=== PATIENT | female | born 1960 | race Caucasian/White ===

== ENCOUNTER → 2016-08-23 | Outpatient (CLI) | payer OTHER ==
[~2016-08-23] MED LIST: ACETAMINOPHEN PO; ADVAIR INH; ALBUTEROL17 GM INH; ASPIRIN EC81 M1 PO; ASPIRIN ENTERI325 M1 PO; ASPIRIN81 M2 PO; ATORVASTATIN CA10 MG PO; AZELASTINE137 MCG/0.; CETIRIZINE HCL10 MG PO; CIMETIDINE300 MG PO; CIPRO PO; DULERA 100 MCG/13 GM IH; FLAGYL PO; FLEXERIL10 MG PO; FLONASE 0.05% N16 G1; FLONASE16 GM; HYDROCHLOROTH12.5 MG PO; IBUPROFEN800 MG PO; LEVAQUIN PO; LIPITOR20 MG PO; LISINOPRIL PO; LISINOPRIL20 MG PO; LOPID600 MG PO; LORTAB 5/500 TA1 TA2 PO; OMEPRAZOLE40 M1 PO; PATIENT'S PHARMACY; PEPTO BISMOL PO; PHENERGAN PO; PREVACID PO; PRINIVIL5 MG PO; PROAIR HFA INH; PROTONIX PO; PYRIDIUM PO; TAGAMET300 MG PO; TERBINAFINE HC250 MG PO; TYLENOL EXT.STRENGTH PO; ZOCOR80 MG PO; ZOLOFT PO; ZOLOFT100 MG PO; ZYRTEC10 M2 PO
--- NOTE | ~2016-08-23 | NM22 ---
[facility] A Service of [facility] RADIOLOGY TEXT RESULTS PATIENT: ROEL PURCELL LOCATION: [facility] : [birth year] UNIT #: [id number] AGE: [address]: Flavio Caba MD SEX: F ORDER DR: [id number] [facility] [address] [place], [place] [address] [id number] O MR#: [id number] Acc #: [id number] NAME: ROEL PURCELL : 1960 SEX: F STUDY DATE/TIME: 08/23/2016 9:47 UNIT: [facility] ROOM: STUDY DESCRIPTION: NM Hepatobiliary W GB Pharm Attending Physician: Flavio Caba M.D. Ordering Physician: Flavio Caba M.D. Primary Care Physician: [facility] MEDICAL IMAGING REPORT This report is preliminary unless electronic signature is present EXAM HIDA scan with Kinevac CCK 08/23/2016 HISTORY Right upper quadrant abdominal pain with nausea and vomiting, gastroesophageal reflux, abdominal bloating for 3 weeks. FINDINGS The patient received an intravenous injection of 5.4 mCi of technetium 99m tagged Choletec for hepatobiliary imaging. 1 hour following the injection of the radiopharmaceutical, the patient received an intravenous injection of 2 mcg of Kinevac. There is homogeneous distribution of the radiotracer throughout the liver. Gallbladder activity was seen by 15 minutes postinjection of the radiopharmaceutical. Following Kinevac injection, the gallbladder ejection fraction was 95.8% (normal is greater than 30%). IMPRESSION Normal HIDA scan with gallbladder ejection fraction of 95.8%. Dictated by... Ezequiel Matias M.D. THIS IS AN ELECTRONICALLY VERIFIED REPORT Ezequiel Matias M.D. at 08/24/2016 2:22 PM RHETT/joni TD: 08/23/2016 13:31 JOB #: [id number] MEDICAL IMAGING REPORT COPY
== END | disposition home or self-care (01) ==
LOC: CNUC 07:27
DX: R10.9 Unspecified abdominal pain (principal); R11.2 Nausea with vomiting, unspecified
CPT/HCPCS: 78227; A9537; J2805

== ENCOUNTER 2016-12-02 10:58 | Emergency (ER) | payer OTHER ==
[2016-12-02 11:51] LABS: URINE SOURCE CLEAN CATCH
[2016-12-02 11:59] LABS: URINE APPEARANCE CLOUDY; URINE BILIRUBIN NEG (NEG); URINE BLOOD 2+ (NEG); URINE COLOR YELLOW; URINE GLUCOSE NEG (NEG); URINE KETONE NEG (NEG); URINE LEUKOCYTE ESTERASE 2+ (NEG); URINE NITRATE NEG (NEG); URINE PROTEIN NEG (NEG); URINE SPECIFIC GRAVITY 1.028 (1.003-1.035); URINE UROBILINOGEN 0.2 MG/DL (NEG)
[2016-12-02 12:01] LABS: CULTURE INDICATED? YES; URINE BACTERIA AUWI 1+ (NEGATIVE); URINE SQUAMOUS EPITHELIAL CELL MOD /[HPF]; UWBCS1 AUWI 25-50 (0-5)
[2016-12-02 12:13] LABS: BASOPHIL% 0.4 % (0-2.5); EOSINOPHIL# 0.2 X10e3 (0-0.7); EOSINOPHIL% 2.7 % (0.0-7.0); HEMATOCRIT 36.1 % (35.0-45.0); HEMOGLOBIN 11.9 gm/dL (12.0-16.0); LYMPHOCYTE# 2.8 X10e3 (1.0-3.5); LYMPHOCYTE% 37.1 % (17.0-45.0); MEAN CELL VOLUME 83.9 FL (83-96); MEAN CORPUSCULAR HEMOGLOBIN 27.6 PG (28-34); MEAN CORPUSCULAR HGB CONC 32.9 g/dL (30-36); MONOCYTE# 0.6 X10e3 (0-1.0); MONOCYTE% 8.5 % (3.0-12.0); NEUTROPHIL# 3.9 X10e3 (1.5-7.1); NEUTROPHIL% 51.3 % (40-75); PLATELET COUNT 357 X10e3 (140-420); RED CELL DISTRIBUTION WIDTH 14.9 % (11.0-15.5); WHITE BLOOD COUNT 7.6 X10e3 (4.0-10.5)
[2016-12-02 12:20] LABS: DIFF IND NO
[2016-12-02 12:48] LABS: ALBUMIN SERUM 3.8 g/dL (3.5-5.0); ALKALINE PHOSPHATASE 49 U/L (32-92); ALT (SGPT) 40 U/L (10-40); AMYLASE 46 U/L (0-46); AST (SGOT) 40 U/L (10-42); BILIRUBIN, DIRECT <0.1 mg/dL (0.0-0.2); BILIRUBIN,INDIRECT 0.1 mg/dL (0.0-0.9); BILIRUBIN,TOTAL 0.2 mg/dL (0.2-2.0); BLOOD UREA NITROGEN 15 mg/dL (9-23); CALCIUM SERUM 8.7 mg/dL (8.4-10.2); CARBON DIOXIDE 24 mmol/L (22-31); CHLORIDE 105 mmol/L (100-111); CREATININE SERUM 0.5 mg/dL (0.6-1.4); GLOM FILT RATE Estimated 109.7 mL/min (>60); GLUCOSE FASTING 96 mg/dL (70-110); LIPASE 142 U/L (22-51); POTASSIUM 3.9 mmol/L (3.5-5.1); PROTEIN TOTAL SERUM 7.6 g/dL (6.0-8.3); SODIUM 137 mmol/L (135-145)
== END 2016-12-02 14:40 | disposition home or self-care (01) ==
LOC: CED 10:58
PROVIDERS: Emergency Medicine
DX: N39.0 Urinary tract infection, site not specified (principal); R19.7 Diarrhea, unspecified; I10 Essential (primary) hypertension; F32.9 Major depressive disorder, single episode, unspecified; F17.200 Nicotine dependence, unspecified, uncomplicated
CPT/HCPCS: 36415; 80048; 80076; 81003; 82150; 83690; 85025; 87086; 96361; 96374; 96375; 99284; C9113; J2270; J2405

== ENCOUNTER → 2017-03-01 | Outpatient (CLI) | payer OTHER ==
--- NOTE | ~2017-03-01 | CT113 ---
[facility] A Service of [facility] RADIOLOGY TEXT RESULTS PATIENT: ROEL PURCELL LOCATION: [facility] : [birth year] UNIT #: [id number] AGE: [address]: Umer Crespo MD SEX: F ORDER DR: [id number] [facility] [address]. [place], [place] [address] [id number] O MR#: [id number] Acc #: [id number] NAME: ROEL PURCELL : 1960 SEX: F STUDY DATE/TIME: 03/01/2017 10:13 UNIT: [facility] ROOM: STUDY DESCRIPTION: CT Sinuses Wo Contrast Attending Physician: Umer Crespo III, M.D. Referring Physician: Umer Crespo III, M.D. Ordering Physician: Physician Non-Staff Primary Care Physician: [facility] IMAGING REPORT This report is preliminary unless electronic signature is present EXAM Sinus CT no contrast DATE OF STUDY: 03/01/2017 PROC[address]URE [address]ial unenhanced sinus CT with multiplanar reformats. The CT exam was performed with one or more of the following radiation dose reduction techniques: automatic exposure control, adjustment of mA and/or kV according to patient size, and iterative reconstruction. COMPARISON Prior CT dated 07/09/2015. CLINICAL HISTORY is recurrent episodes of sinusitis, congestion, pain and pressure for several months. FINDINGS The right frontal sinus is minimally well pneumatized and the left is normally pneumatized and aerated. There has been subtotal ethmoidectomy bilaterally but remaining ethmoid air cells are normally aerated. The sphenoid sinus is normally pneumatized and normally aerated with left chamber dominance. The maxillary sinuses show changes of uncinectomies on the right, with marked right maxillary mucosal and bony thickening including a right maxillary air-fluid level but there is no bone erosion or destruction. On [facility] A Service of [facility] RADIOLOGY TEXT RESULTS PATIENT: ROEL PURCELL LOCATION: [facility] : 64 UNIT #: [id number] AGE: [address]: Umer Crespo MD SEX: F ORDER DR: the left there is an air-fluid level and slight bony thickening and the infundibulum is narrowed by mucosal thickening but there is a probably surgically created new infundibulum posteriorly. The nasal septum is midline. There is some new faint dense material in the right nasal passage seen on both coronal and axial images. It partially occludes the right nasal passage. It is of uncertain etiology but may represent chronic inspissated mucus. IMPRESSION Extensive chronic postsurgical changes, extensive right greater than left maxillary bony thickening with bilateral maxillary air-fluid levels. No bone erosion or destruction. There is some sclerotic almost bone density material in the right posterior nasal passage not seen on the prior study, medial to the middle turbinate may represent some inspissated mucoid material. Dictated by... Florencio Berg M.D. THIS IS AN ELECTRONICALLY VERIFIED REPORT Florencio Berg M.D. at 03/02/2017 2:06 PM EVAN/haley TD: 03/02/2017 09:11 JOB #: [id number] MEDICAL IMAGING REPORT Page 1 of 1 COPY
== END | disposition home or self-care (01) ==
LOC: CCAT 09:50
DX: J01.41 Acute recurrent pansinusitis (principal); J34.89 Other specified disorders of nose and nasal sinuses; Z98.890 Other specified postprocedural states
CPT/HCPCS: 70486